=== PATIENT | male | born 1965 | race African-American/Black ===

== ENCOUNTER 2022-02-20 23:47 | Inpatient (IN) | payer MEDICARE, OTHER ==
[~2022-02-20] VITALS: Ht 177.8 cm; Wt 94.3 kg
--- NOTE | 2022-02-20 23:50 | NUR ---
pt came in from [facility] on a 5150 dts for placment in the mental health [facility] here.
--- NOTE | 2022-02-21 00:01 | NUR ---
[facility]. there is no sitter availalbe.
--- NOTE | 2022-02-21 00:06 | NUR ---
pt states he will be compliant and will not try to leave the er, I informed him the plan is for him to go to the mental health [facility].
[2022-02-21] MEDS ORDERED: CLON0.1T PO (01:10)
[2022-02-21] MEDS ORDERED: TEMA30CA PO (01:10)
[2022-02-21] MEDS ORDERED: DOXE50CA4 PO (01:10)
[2022-02-21] MEDS ORDERED: FAMO-132 PO (01:10)
[2022-02-21] MEDS ORDERED: MAGNESIUM HYDROXIDE 30 ML LIQUID UDC PO PRN (02:00)
[2022-02-21] MEDS ORDERED: ACETAMINOPHEN 325 MG TABLET PO PRN (02:00)
--- NOTE | 2022-02-21 02:05 | NUR ---
report was given to Brielle ARNETT in mental health.
--- NOTE | 2022-02-21 03:00 | NUR ---
GPS ADMISSION NOTE: Patient is a 56 year old male, brought in the hospital by ambulance from [facility]. Patient is on a 5150 for DTS and GD. Per hold, the patient verbalized wanting to kill himself by cutting his wrists. Patient is homeless and exhibits psychotic features. Upon face to face evaluation, this patient is calm but evasive when answering questions. The patient has poor eye contact and poor insight. This typewriter assembler was unable to engage with the patient in any meaningful conversation. The Patients Rights Handbook and Advisement were provided. VS stable. The patient denies having any medical problems. When he arrived to the unit, he had multiple large bags full of contraband. The bags were inventoried and locked up. The patient was untruthful with this typewriter assembler on many levels. The patient was oriented to the unit rules and environment. Safety Stratiges are in place at this time.
[2022-02-21 04:09] VITALS: BP 132/92
[2022-02-21 07:30] VITALS: BP 137/93
[2022-02-21] MEDS: SERTRALINE HCL 50 MG TABLET PO SCH (10:20)
--- NOTE | 2022-02-21 15:04 | NUR ---
Gps/Safety Investigator- Patient remains in his room, encouraged to attend his group therapy, had been isolative , quiet, encouraged verbalizations of his feelings and needs. Compliant with routine meds.
--- NOTE | 2022-02-21 15:25 | NUR ---
JOANNA Initial Discharge Plan: Pt is a 56 year old male admitted to [facility] on a 5150 hold for danger to self and gravely disabled adult. Pt stated he does not currently have a residence. Pt was agreeable to SNF placement upon discharge recommended by and JOANNA. JOANNA will also provide penitentiary resources for pt and substance use referrals upon discharge. Pt reported he does not have any family contact. JOANNA will continue to work with pt, family and MD to ensure a safe and proper discharge plan.
--- NOTE | 2022-02-21 15:35 | NUR ---
Firearms Report: Mine Equipment Design Engineer completed and submitted a [employer] firearms report for 5150 a danger to self and grave disability certifications. A copy of report has been placed in patient chart.
[2022-02-21 15:39] VITALS: BP 123/97
[2022-02-21] MEDS: FAMOTIDINE 20 MG TABLET PO SCH (16:50)
[2022-02-21 20:08] VITALS: BP 198/86
[2022-02-21] MEDS: QUETIAPINE FUMARATE 25 MG TABLET PO SCH (20:35)
[2022-02-21] MEDS: LORAZEPAM 1 MG TABLET PO PRN (20:35)
[2022-02-21] MEDS: TEMAZEPAM 7.5 MG CAPSULE PO PRN (23:40)
--- NOTE | 2022-02-22 06:16 | NUR ---
Gps: Patient remains in his room, had been isolative , quiet, encouraged verbalizations of his feelings and needs. denies Si at this time. slept 4.30 hrs through the night.
[2022-02-22] MEDS: LORAZEPAM 1 MG TABLET PO PRN (08:39)
[2022-02-22] MEDS: SERTRALINE HCL 50 MG TABLET PO SCH (08:39)
[2022-02-22] MEDS: FAMOTIDINE 20 MG TABLET PO SCH ×2 (08:40→16:24)
[2022-02-22 09:13] VITALS: BP 147/104
--- NOTE | 2022-02-22 10:04 | NUR ---
GPS: Nursing Notes: Request [facility]: Staff requested a 5250 certification review hearing through [facility] portal, copy of 5250 delivered to patient, explained 5250 hold, and patient expressed understanding, continue to monitor for safety, continue with treatment plan.
--- NOTE | 2022-02-22 11:24 | NUR ---
GPS: Nursing Notes: Destructive Behavior To Self: Patient is awake and responding to his name, cooperative with nursing care, isolative and withdrawn in his room, stated "Yes, I am hearing voices, but they are less than yesterday..", depressed mood and anxious affect, denies SI, verbally gabriel for safety, continue to monitor for safety, unable to formulate a viable plan for self care, internally preoccupied, refusing to participate in therapeutic groups, continue with treatment plan.
[2022-02-22] MEDS: CLONIDINE HCL 0.1 MG TABLET PO SCH ×2 (12:19→19:12)
[2022-02-22 16:01] VITALS: BP 147/99
[2022-02-22 20:00] VITALS: BP 144/96
[2022-02-22] MEDS: QUETIAPINE FUMARATE 25 MG TABLET PO SCH (20:45)
[2022-02-22] MEDS: TEMAZEPAM 7.5 MG CAPSULE PO PRN (21:00)
[2022-02-22] MEDS ORDERED: DOXEPIN 100 MG CAPSULE PO SCH (21:00)
[2022-02-23] MEDS: LORAZEPAM 1 MG TABLET PO PRN ×2 (00:48→22:23)
[2022-02-23 07:30] VITALS: BP 129/86
[2022-02-23] MEDS: FAMOTIDINE 20 MG TABLET PO SCH ×2 (08:07→16:15)
[2022-02-23] MEDS: CLONIDINE HCL 0.1 MG TABLET PO SCH ×2 (08:07→16:15)
[2022-02-23] MEDS: SERTRALINE HCL 50 MG TABLET PO SCH (08:07)
--- NOTE | 2022-02-23 13:20 | NUR ---
GPS: Nursing Notes: Destructive Behavior To Self: Patient is awake and responding to his name, needs prompting with ADL's, showered today, cooperative with staff, following staff directions, depressed mood and sad affect, stated "Yes, I am hearing voices..", "The voices are telling me to go back to [place]...", "The voices, they come and go, but they are less intensive than before..", unable to formulate a viable plan for self care, continue to monitor for safety, denies SI/HI, verbally gabriel for safety, continue with treatment plan.
[2022-02-23 14:29] LABS: *BILIRUBIN,URIN NEGATIVE (NEGATIVE); *CLARITY,URINE CLEAR (CLEAR); *COLOR,URINE YELLOW (YELLOW); *KETONES,URINE NEGATIVE (NEGATIVE); *UROBILINOGEN,URINE 0.2 E.U./dl (NORMAL); LEUKOCYTE ESTERASE ,URINE NEGATIVE (NEGATIVE); NITRITE, URINE NEGATIVE (NEGATIVE); UGLUCOSE NEGATIVE (NEGATIVE)
[2022-02-23 14:31] LABS: *BLOOD, URINE TRACE (NEGATIVE)
[2022-02-23 14:34] LABS: BACTERIA,URINE NONE SEEN /HPF (NONE SEEN); RBC,URINE NONE SEEN /HPF (0-3); SQUAMOUS EPITHELIAL CELL,UR NONE SEEN /HPF (NONE SEEN); WBC,URINE 0-3 /HPF (0-3)
[2022-02-23 14:35] LABS: MUCUS,URINE NONE SEEN /LPF (0-FEW)
[2022-02-23 15:08] VITALS: BP 136/95
[2022-02-23 20:00] VITALS: BP 146/98
[2022-02-23] MEDS ORDERED: QUETIAPINE FUMARATE 25 MG TABLET PO SCH (21:00)
[2022-02-24 07:30] VITALS: BP 148/95
[2022-02-24] MEDS: SERTRALINE HCL 50 MG TABLET PO SCH (08:21)
[2022-02-24] MEDS: FAMOTIDINE 20 MG TABLET PO SCH ×2 (08:21→16:31)
[2022-02-24] MEDS: CLONIDINE HCL 0.1 MG TABLET PO SCH ×2 (08:22→16:31)
--- NOTE | 2022-02-24 13:51 | NUR ---
GPS: Nursing Notes: Destructive Behavior To Self: Patient is awake and responding to his name, stated "Yes, I am hearing voices, but are less than before..", denies SI/HI, participating in therapeutic groups, A/Ox4, cooperative with nursing care, compliant with her medications, depressed mood and anxious affect, needs prompting with ADL's, unable to formulate a viable plan for self care, continue to monitor for safety, continue with treatment plan.
[2022-02-24 15:05] VITALS: BP 142/99
[2022-02-24 19:56] VITALS: BP 151/93
[2022-02-24] MEDS: QUETIAPINE FUMARATE 100 MG TABLET PO SCH (20:38)
[2022-02-24] MEDS ORDERED: QUETIAPINE FUMARATE 25 MG TABLET PO SCH (21:00)
[2022-02-24] MEDS: LORAZEPAM 1 MG TABLET PO PRN (23:00)
[2022-02-25 07:30] VITALS: BP 150/85
[2022-02-25] MEDS: SERTRALINE HCL 50 MG TABLET PO SCH (08:28)
[2022-02-25] MEDS: FAMOTIDINE 20 MG TABLET PO SCH ×2 (08:28→17:51)
[2022-02-25] MEDS: CLONIDINE HCL 0.1 MG TABLET PO SCH ×2 (08:29→17:52)
[2022-02-25 15:56] VITALS: BP_SYST 145; BP_DIAS 49; BP_DIAS 99
--- NOTE | 2022-02-25 16:05 | NUR ---
GPS: Nursing Notes: Destructive Behavior To Self: Patient is awake and responding to his name, cooperative with nursing care, complaint with his medications, participating with treatment plan, more interactive with peers, internally preoccupied, stated, "Yes, I am still hearing voices... They are saying that I am not going to sleep well tonight because he is noisy..", unable to formulate a viable plan for self care, depressed mood and anxious affect, denies SI/HI, continue to monitor for safety, continue with treatment plan.
[2022-02-25 20:02] VITALS: BP 148/97
[2022-02-25] MEDS: QUETIAPINE FUMARATE 100 MG TABLET PO SCH (20:26)
[2022-02-25] MEDS: TEMAZEPAM 7.5 MG CAPSULE PO PRN ×2 (20:27→22:06)
[2022-02-25] MEDS: LORAZEPAM 1 MG TABLET PO PRN (22:05)
--- NOTE | 2022-02-26 05:12 | NUR ---
patient received in the room, sitting quietly. Patient remains A&0x4. Patient states to be hearing voices "friendly voices". reinforce reality to patient. Patient denies of hurting himself. remains isolated in his room. patient compliant with medications. PRN's ativan and restoril given with effectiveness as patient slept most of the night. safety strategies kept in place.
[2022-02-26 07:30] VITALS: BP 141/93
[2022-02-26] MEDS: FAMOTIDINE 20 MG TABLET PO SCH ×2 (08:43→17:33)
[2022-02-26] MEDS: CLONIDINE HCL 0.1 MG TABLET PO SCH ×2 (08:45→17:33)
[2022-02-26] MEDS: SERTRALINE HCL 50 MG TABLET PO SCH (08:45)
[2022-02-26] MEDS: DIVALPROEX 250 MG TABLET.DR PO SCH ×2 (13:47→17:33)
[2022-02-26 15:27] LABS: HEMATOCRIT 46.2 % (36.7-47.1); MEAN CORPUSCULAR HEMOGLOBIN 22.8 uug (23.8-33.4); MEAN CORPUSCULAR VOLUME 69.8 fL (73.0-96.2); PLATELET COUNT (AUTO) 257 K/uL (152-348)
[2022-02-26 15:34] LABS: BILIRUBIN,TOTAL 0.3 mg/dL (0.2-1.0); CREATININE 1.1 mg/dL (0.6-1.3); POTASSIUM 3.8 mmol/L (3.5-5.1); TOTAL PROTEIN, SERUM 8.5 g/dL (6.4-8.2)
[2022-02-26 16:00] VITALS: BP 149/99
--- NOTE | 2022-02-26 16:41 | NUR ---
Received patient sleeping in his room. A/O X 3 to person, place. Pt. is depressed, anxious, isolative, cooperative with care and compliant with medications. Ambulates independently. Denies SI/HI AH/VH. Denies pain or any discomfort. Emotional support provided. Fall and safety precautions implemented.
[2022-02-26] MEDS: QUETIAPINE FUMARATE 25 MG TABLET PO SCH (17:31)
[2022-02-26 20:00] VITALS: BP 134/90
[2022-02-26] MEDS: QUETIAPINE FUMARATE 25 MG TABLET PO PRN (21:07)
[2022-02-26] MEDS: TEMAZEPAM 7.5 MG CAPSULE PO PRN (21:07)
[2022-02-26] MEDS: QUETIAPINE FUMARATE 100 MG TABLET PO SCH (21:08)
[2022-02-27] MEDS: MAG HYDROX/AL HYDROX/SIMETH 30 ML LIQUID UDC PO PRN (02:30)
[2022-02-27] MEDS: LORAZEPAM 1 MG TABLET PO PRN (03:07)
[2022-02-27 08:00] VITALS: BP 133/92
[2022-02-27] MEDS: FAMOTIDINE 20 MG TABLET PO SCH ×2 (08:54→16:42)
[2022-02-27] MEDS: DIVALPROEX 250 MG TABLET.DR PO SCH ×3 (08:54→16:42)
[2022-02-27] MEDS: QUETIAPINE FUMARATE 25 MG TABLET PO SCH ×2 (08:57→16:43)
[2022-02-27] MEDS: CLONIDINE HCL 0.1 MG TABLET PO SCH ×2 (08:57→16:42)
--- NOTE | 2022-02-27 11:39 | NUR ---
Gps/Ruching Machine Operator- Compliant with routine meds. attends and participates in his group therapy group therapy denies pain no discomfort , ambulatory self care
[2022-02-27 16:00] VITALS: BP 173/59
[2022-02-27 19:59] VITALS: BP 135/84
[2022-02-27] MEDS: QUETIAPINE FUMARATE 25 MG TABLET PO PRN (20:05)
[2022-02-27] MEDS: TEMAZEPAM 7.5 MG CAPSULE PO PRN (20:08)
[2022-02-27] MEDS: QUETIAPINE FUMARATE 100 MG TABLET PO SCH (20:08)
[2022-02-28] MEDS: LORAZEPAM 1 MG TABLET PO PRN ×3 (00:43→23:58)
[2022-02-28 07:30] VITALS: BP 132/83
[2022-02-28] MEDS: FAMOTIDINE 20 MG TABLET PO SCH ×2 (08:33→16:34)
[2022-02-28] MEDS: CLONIDINE HCL 0.1 MG TABLET PO SCH ×2 (08:33→16:35)
[2022-02-28] MEDS: DIVALPROEX 250 MG TABLET.DR PO SCH ×3 (08:33→16:34)
[2022-02-28] MEDS: QUETIAPINE FUMARATE 25 MG TABLET PO SCH ×2 (08:38→16:35)
--- NOTE | 2022-02-28 14:16 | NUR ---
SNF Referral: Database Admin faxed patient's referral packet including: History and Physical, Consultation, Progress Notes, Medication List and Labs to the following facilities for review and possible penitentiary placement: [facility] ([phone]) with Divya in admissions.
--- NOTE | 2022-02-28 15:11 | NUR ---
Discharge Update: Divya from [facility] ([phone]) stated pt is accept to their facility upon discharge. Pt is aware and agreeable with the discharge plan.
[2022-02-28 16:32] VITALS: BP 128/79
--- NOTE | 2022-02-28 17:05 | NUR ---
Gps/Computer Systems Administrator- Isolative, staying in his room most of the day, comes out of his room to ask for the phone or some water . Encouraged to attend his group therapy.
[2022-02-28] MEDS: QUETIAPINE FUMARATE 25 MG TABLET PO PRN (20:09)
[2022-02-28] MEDS: TEMAZEPAM 7.5 MG CAPSULE PO PRN (20:21)
[2022-02-28] MEDS ORDERED: QUETIAPINE FUMARATE 200 MG TABLET PO SCH (21:00)
[2022-02-28] MEDS ORDERED: QUETIAPINE FUMARATE 100 MG TABLET PO SCH (21:00)
[2022-02-28 22:20] VITALS: BP 132/84
[2022-03-01 07:30] VITALS: BP 125/84
[2022-03-01] MEDS: DIVALPROEX 250 MG TABLET.DR PO SCH ×3 (08:19→17:07)
[2022-03-01] MEDS: CLONIDINE HCL 0.1 MG TABLET PO SCH ×2 (08:20→17:07)
[2022-03-01] MEDS: QUETIAPINE FUMARATE 25 MG TABLET PO SCH ×3 (08:20→17:07)
[2022-03-01] MEDS: FAMOTIDINE 20 MG TABLET PO SCH ×2 (08:20→17:07)
--- NOTE | 2022-03-01 09:56 | NUR ---
Gps/Geneticist- Continued compliance with her routine medications , guarded, tends to stay in his room most of the day. Encouraged continued verbalizations of his needs, denies any discomfort
[2022-03-01 16:00] VITALS: BP 103/78
[2022-03-01 20:20] VITALS: BP 120/87
[2022-03-01] MEDS: TEMAZEPAM 7.5 MG CAPSULE PO PRN (20:22)
[2022-03-01] MEDS: QUETIAPINE FUMARATE 100 MG TABLET PO SCH (20:22)
[2022-03-02] MEDS: LORAZEPAM 1 MG TABLET PO PRN ×2 (01:16→21:59)
--- NOTE | 2022-03-02 06:40 | NUR ---
GPS NOTES: Patient remains isolative and guarded. Stays mostly in his room. patient able to verbalized needs. remains compliant with medications. Patient sleeps on and off at night. Patient denies SI. safety strategies in place.
[2022-03-02 07:30] VITALS: BP 116/80
[2022-03-02 07:33] LABS: HEMATOCRIT 45.3 % (36.7-47.1); MEAN CORPUSCULAR HEMOGLOBIN 22.3 uug (23.8-33.4); MEAN CORPUSCULAR VOLUME 69.9 fL (73.0-96.2); PLATELET COUNT (AUTO) 231 K/uL (152-348)
[2022-03-02 07:51] LABS: BILIRUBIN,TOTAL 0.3 mg/dL (0.2-1.0); POTASSIUM 4.2 mmol/L (3.5-5.1); TOTAL PROTEIN, SERUM 7.4 g/dL (6.4-8.2)
[2022-03-02] MEDS: DIVALPROEX 250 MG TABLET.DR PO SCH ×3 (08:20→16:36)
[2022-03-02] MEDS: FAMOTIDINE 20 MG TABLET PO SCH ×2 (08:20→16:38)
[2022-03-02] MEDS: QUETIAPINE FUMARATE 25 MG TABLET PO SCH ×3 (08:20→16:37)
[2022-03-02] MEDS: CLONIDINE HCL 0.1 MG TABLET PO SCH ×2 (08:21→16:37)
--- NOTE | 2022-03-02 12:41 | NUR ---
Gps/Bottom Finisher- Stayed in the activity room during his lunch, compliant with medications, attended part of his group therapy. Able to talked to Terrell JENNINGS , also was informed , didnt sleep well last night, requesting sleeping med. dose (restoril ) to be increased . Interacting fairly well with staff .
[2022-03-02 16:00] VITALS: BP 139/101
[2022-03-02 20:00] VITALS: BP 128/87
[2022-03-02] MEDS: QUETIAPINE FUMARATE 100 MG TABLET PO SCH (20:14)
--- NOTE | 2022-03-02 20:40 | NUR ---
Pt received ambulating unit hallway. calm and cooperative. no aggressive or combative behavior noted. denies paranoid and delusions but appears internally preoccupied. Denies suicidal ideations. Contracts for safety.
[2022-03-03 08:00] VITALS: BP 118/91
[2022-03-03] MEDS: QUETIAPINE FUMARATE 25 MG TABLET PO SCH ×3 (08:53→17:35)
[2022-03-03] MEDS: DIVALPROEX 250 MG TABLET.DR PO SCH ×2 (08:53→12:43)
[2022-03-03] MEDS: FAMOTIDINE 20 MG TABLET PO SCH ×2 (08:53→17:35)
[2022-03-03] MEDS: CLONIDINE HCL 0.1 MG TABLET PO SCH ×2 (08:54→17:35)
--- NOTE | 2022-03-03 13:33 | NUR ---
GPS: Nursing Notes: Destructive Behavior To Self: Patient is awake and responding to his name, compliant with his medications, believes that his medications are working, stated "I am not hearing the voices anymore..", depressed mood and blunted affect, isolative and withdrawn in his room at times, needs prompting to participate in some group activities, low energy level, unable to formulate a viable plan for self care, continue to monitor for safety, continue with treatment plan.
[2022-03-03 16:33] VITALS: BP 121/82
[2022-03-03] MEDS: DIVALPROEX 500 MG TABLET.DR PO SCH (17:35)
[2022-03-03 20:41] VITALS: BP 119/91
[2022-03-03] MEDS: QUETIAPINE FUMARATE 100 MG TABLET PO SCH (20:47)
[2022-03-03] MEDS: TEMAZEPAM 7.5 MG CAPSULE PO PRN (20:48)
[2022-03-03] MEDS: LORAZEPAM 1 MG TABLET PO PRN (22:41)
--- NOTE | 2022-03-04 04:18 | NUR ---
patient is AOx4 isolative and withdrawn no interaction with other peers, compliant with all medication, feels hopeless and helpless, requested Ativan for anxiety ,slept most of shift.
[2022-03-04 08:00] VITALS: BP 131/78
[2022-03-04] MEDS: QUETIAPINE FUMARATE 25 MG TABLET PO SCH ×3 (09:09→17:55)
[2022-03-04] MEDS: DIVALPROEX 250 MG TABLET.DR PO SCH ×2 (09:10→12:44)
[2022-03-04] MEDS: CLONIDINE HCL 0.1 MG TABLET PO SCH ×2 (09:10→17:55)
[2022-03-04] MEDS: FAMOTIDINE 20 MG TABLET PO SCH ×2 (09:12→17:57)
--- NOTE | 2022-03-04 15:38 | NUR ---
Received patient sleeping in his room. A/O X 3 to person, place. Pt. is isolative, cooperative, quiet, depressed, complaint with medications. Denies SI/HI AH/VH. Denies pain. Emotional support provided.
[2022-03-04 16:17] VITALS: BP 125/91
[2022-03-04] MEDS: DIVALPROEX 500 MG TABLET.DR PO SCH (17:55)
[2022-03-04 19:45] VITALS: BP 132/90
[2022-03-04] MEDS: TEMAZEPAM 7.5 MG CAPSULE PO PRN (21:09)
[2022-03-04] MEDS: QUETIAPINE FUMARATE 100 MG TABLET PO SCH (21:09)
[2022-03-04] MEDS: LORAZEPAM 1 MG TABLET PO PRN (21:10)
[2022-03-04] MEDS: QUETIAPINE FUMARATE 25 MG TABLET PO PRN (21:10)
[2022-03-05] MEDS: MAG HYDROX/AL HYDROX/SIMETH 30 ML LIQUID UDC PO PRN (00:17)
[2022-03-05] MEDS: LORAZEPAM 1 MG TABLET PO PRN ×2 (04:25→20:40)
[2022-03-05 07:30] VITALS: BP 120/92
[2022-03-05] MEDS: DIVALPROEX 250 MG TABLET.DR PO SCH ×2 (08:47→13:16)
[2022-03-05] MEDS: QUETIAPINE FUMARATE 25 MG TABLET PO SCH ×3 (08:47→17:17)
[2022-03-05] MEDS: CLONIDINE HCL 0.1 MG TABLET PO SCH ×2 (08:47→17:18)
[2022-03-05] MEDS: FAMOTIDINE 20 MG TABLET PO SCH ×2 (08:49→17:20)
--- NOTE | 2022-03-05 14:12 | NUR ---
Received patient sleeping in his room. A/O X 3 to person, place. Pt. is calm, cooperative, isolative, depressed, withdrawn. Denies SI/HI AH/VH. Emotional support given. Fall and safety precautions implemented.
[2022-03-05 16:00] VITALS: BP 125/81
[2022-03-05] MEDS: DIVALPROEX 500 MG TABLET.DR PO SCH (17:18)
[2022-03-05 20:00] VITALS: BP 135/94
[2022-03-05] MEDS: TEMAZEPAM 7.5 MG CAPSULE PO PRN (20:40)
[2022-03-05] MEDS: QUETIAPINE FUMARATE 100 MG TABLET PO SCH (20:40)
[2022-03-05 22:25] VITALS: BP 197/90
[2022-03-06] MEDS: LORAZEPAM 1 MG TABLET PO PRN (03:19)
[2022-03-06 07:30] VITALS: BP 129/87
[2022-03-06] MEDS: DIVALPROEX 250 MG TABLET.DR PO SCH (08:40)
[2022-03-06] MEDS: QUETIAPINE FUMARATE 25 MG TABLET PO SCH (08:40)
[2022-03-06 08:41] VITALS: BP 129/87
[2022-03-06] MEDS: CLONIDINE HCL 0.1 MG TABLET PO SCH (08:41)
[2022-03-06] MEDS: FAMOTIDINE 20 MG TABLET PO SCH (08:43)
--- NOTE | 2022-03-06 11:30 | NUR ---
Gps/Cell Reliner- Called [facility], report was given to Jurgen Le, accepting patient today. All belongings and valuables as well as own meds. returned back to patient, patient was well informed of his discharged plan. denies pain, no discomfort, looking forward to leaving per patient. has couple bags, belongings returned to patient. [facility] spanish moss picker time at 1230 .
--- NOTE | 2022-03-06 12:26 | NUR ---
Gps/Sculpture Instructor- [facility] in to slate picker patient, no distress, denies any discomfort, no S.I. ,no H.I .Discharge in good spirit.
--- NOTE | 2022-03-06 14:15 | NUR ---
SOCIAL WORK DISCHARGE NOTE Patient was discharged to [facility], [address] [place] [phone] ) via ambulance. Dr Mujica will follow patient there and he will be seen by [facility] there.Patient was calm and cooperative and agreeable to discharge.
== END 2022-03-06 12:35 | DRG 885 ==
LOC: ER 23:53 → GPS 02-21 01:15
PROVIDERS: ADMIT Psychiatry & Neurology Psychiatry; ATTEND Registered Nurse
DX: F25.0 Schizoaffective disorder, bipolar type (principal); F23 Brief psychotic disorder; R45.851 Suicidal ideations; Z59.00 Homelessness unspecified; F41.9 Anxiety disorder, unspecified; I10 Essential (primary) hypertension; J45.909 Unspecified asthma, uncomplicated; K21.9 Gastro-esophageal reflux disease without esophagitis; Z73.6 Limitation of activities due to disability; E66.9 Obesity, unspecified; F15.11 Other stimulant abuse, in remission; Z68.29 Body mass index [BMI] 29.0-29.9, adult; F29 Unspecified psychosis not due to a substance or known physiological condition; Z20.822 Contact with and (suspected) exposure to COVID-19
CPT/HCPCS: 36415; 80164; 85025; 87086; J3490; J8499